=== PATIENT | male | born 1955 | race Two or more races ===

== ENCOUNTER → 2016-03-26 | Outpatient (CLI) | payer OTHER ==
[2016-03-26 08:29] LABS: HEMATOCRIT 32.8 % (42.0-52.0); HEMOGLOBIN 10.7 g/dL (14.0-18.0); MEAN CORPUSCULAR HEMOGLOBIN 29.9 PG (27-31); MEAN CORPUSCULAR HGB CONC 32.6 g/dL (33-37); MEAN PLATELET VOLUME 9.3 FL (7.4-12.2); RDW COEFFICIENT OF VARIATION 16.6 % (11.5-14.5); RED BLOOD COUNT 3.58 10^6/uL (4.70-6.10); WHITE BLOOD COUNT 5.73 10^3/uL (4.8-10.8)
== END ==
LOC: LAB 08:00
PROVIDERS: ATTEND Family Medicine
DX: D64.9 Anemia, unspecified (principal); K92.2 Gastrointestinal hemorrhage, unspecified
CPT/HCPCS: 36415; 85027

== ENCOUNTER 2016-04-20 10:48 | Emergency (ER) | payer OTHER ==
[2016-04-20 11:05] VITALS: RESP 20; TEMP 97.9
[2016-04-20] MEDS ORDERED: NORMAL SALINE 10 ML SYRINGE FLUSH IVP PRN (11:10)
--- NOTE | 2016-04-20 11:22 | PDOC ---
Lower Extremity Problem HPI - General Chief Complaint: Lower Extremity Problem/Injury Stated Complaint: right leg swelling Date Seen by Provider: 04/20/16 Time Seen by Provider: 11:10 Source: POSITIVE: Patient Exam Limitations: POSITIVE: No limitations, Other (Patient does speak Bulgarian however primarily speaks Cymro) Nurse's Notes Reviewed & Considered: Yes - History of Present Illness Initial Comments: The patient is a 60-year-old male who presents to the emergency department with continued and worsening right leg pain and swelling. The patient does have a history of significant varicosities to the right lower extremity. He states that normally he has swelling and varicosities that can sometimes cause pain however for the past couple of weeks he has an area just distal to his knee will which has been significantly more swollen, red and painful. He was seen at the outpatient clinic a week ago and diagnosed with superficial thrombophlebitis and possible cellulitis and started on Keflex. He states that initially the Keflex seem to be helping some however over the past 24 hours he has increased redness which now extends to the zhao. He has had some mild increase in swelling to the right lower extremity in general. He denies chest pain or shortness of breath, fevers or chills, history of diabetes or any other associated complaints. He does not have any recent injury. - Patient Home Medications Home Medications: Home Medications Hydrochlorothiazide 1 tab ORAL QD #90 tab 02/19/16 Lisinopril 1 tab PO BID #180 tab 02/19/16 Pravastatin Sodium [Pravachol] 1 tab ORAL QD #90 tab 02/19/16 Pantoprazole Sodium [Protonix] 40 mg PO BID #60 tab 03/19/16 Cephalexin [Keflex] 500 mg PO Q6H #40 cap 04/13/16 Cephalexin [Keflex] 500 mg PO TID #15 capsule 04/20/16 - Patient Allergies Allergies/Adverse Reactions: Allergies Allergy/AdvReac Type Severity Reaction Status Date / Time NSAIDS (Non-Steroidal AdvReac Severe NOT Verified 04/20/16 10:58 Anti-Inflamma APPLICABLE Past Medical History - heen HEENT History: Denies History Cardiovascular History: Hypertension, Hyperlipidemia Respiratory History: Denies History Gastrointestinal History: GERD, Peptic Ulcer Disease Genitourinary History: Denies History Endocrine History: Denies History Musculoskeletal History: Denies History Neurological History: Denies History Blood Disorders: Denies History Psychiatric History: Denies History History of Sexually Transmitted Diseases: No Cancer History: Denies History In Past Year Been Physically Harmed or Verbally Threatened: No History of MDRO: No History of Other Communicable Diseases: No Tobacco Use: Never Smoker Alcohol Use: Occasionally Substance Use Type: None Previous Surgical History: No Significant Family History: No pertinent family hx Past Medical History Reviewed: Reviewed - No Changes ROS - Limitations ROS Limitations: No Limitations Constitution: DENIES: Chills, Fever Cardiovascular: DENIES: Chest Pain Respiratory: DENIES: Shortness Of Breath Lower Ext Problem Exam - General Appearance General Appearance: POSITIVE: Alert, Cooperative, No Acute Distress - Extremities Lower Extremity: POSITIVE: Other (Examination the right lower extremity does reveal significant varicosities especially to the medial aspect of the right lower extremity, he does have venous stasis changes over the lower zhao, there is an area of varicosity just distal to the knee which is erythematous, tender and firm, there is some mild erythema extending medially to the right zhao, he does not have any tenderness to the posterior calf or popliteal region,) Vascular: POSITIVE: No Vascular Compromise - Neuro / Psych Neuro/Psych: POSITIVE: Sensation Normal, Motor Normal - HEENT HEENT: POSITIVE: Head Inspection Nml - Respiratory / CVS Respiratory / CVS: POSITIVE: No Respiratory Distress, Breath Sounds Normal, Regular Rate/Rhythm, Heart Sounds Normal Lower Ext Problem Progress - Results Reviewed by me Xrays/CTs/US Reviewed by me: Yes Discussed with Radiologist: Yes Radiology Findings: Ultrasound of the right lower extremity reveals no evidence of DVT, he does have marked varicosities with evidence of superficial thrombophlebitis in one of the varicosities associated with his pain. Lab Results Reviewed: Yes - Patient's Progress MDM / ED Course: Ultrasound results were discussed with the patient and his family. Lab work was also discussed. At this point the primary issue is superficial thrombophlebitis in one of the varicosities on the side of his right leg. There could be some component of cellulitis although I think this is primarily thrombophlebitis. He was advised to continue Keflex as prescribed as a precaution and this was extended for 5 days. In addition he was advised to take enteric-coated aspirin 325 mg short-term for the next week or 2. He does have a history of GI bleeding secondary to NSAIDs and was advised to discontinue this medication if he develops any stomach upset or abdominal pain or evidence of any bleeding. In addition he was advised to continue warm compresses or heating pad to the right leg. He is advised to use compression stockings. He states he has had trouble finding any that foot. He may require referral by his primary care provider for prescription compression stockings. He was advised to elevate his right leg. The patient does have extensive varicosity in the right lower extremity and may benefit from surgical referral as well. He was given the number for the vascular surgery group in [place]. Otherwise he will follow-up with his primary care provider next week for recheck in 2-3 days. - Consult Counseled: POSITIVE: Patient, Family, RE: Lab Results, RE: Radiology Results, RE : DX, RE: Need for F/U Patient Care Time - Estimated PCT Patient Care Time (In Minutes): 40 Vital Signs - Recent Vital Signs Vital Signs: Vital Signs (Last 8 hours) Temp Pulse Resp BP Pulse Ox 04/20/16 11:00 97.9 F 85 20 131/87 92 - VS Reviewed Vital Signs Reviewed: Yes Discharge Clinical Impression: Superficial thrombophlebitis, Varicose vein of leg Condition: Stable Prescriptions / Orders: Cephalexin [Keflex] 500 mg PO TID #15 capsule Patient Instructions Given at Discharge: Varicose Veins (ED), Superficial Thrombophlebitis (ED) Additional Instructions: The ultrasound done today does show clot located in the varicose vein of the right leg. There was not any evidence of clot in the deeper veins. This type of blood clot is not a danger for breaking off and going to the lung and is therefore usually treated with regular aspirin daily as a blood thinner. Also keep the right leg elevated to reduce swelling. Heating pad or warm compresses to help increase circulation. It is possible there could be some component of infection although the redness is most likely related to the clot itself and the inflammation associated with it. Continue the Keflex as prescribed and this was extended for an additional 5 days. Recommend long compression stocking. You may need referral from your primary care provider to be fitted for 1 that will work. Continue Tylenol as needed for pain. Consider follow-up with vascular surgery in [place] to see if there may be a surgical option because of the severity of the varicose vein on your leg. Their phone number is [phone], [facility]. Recommend follow-up with primary care in 2-3 days for recheck. Follow Up With: SUDHAKAR DEVINE FNP [Primary Care Provider] -
[2016-04-20 11:24] LABS: BASOPHILS # (AUTO) 0.05 10*3/UL; BASOPHILS % (AUTO) 0.8 % (0-1); EOSINOPHILS % (AUTO) 1.8 % (0-8); HEMATOCRIT 41.9 % (42.0-52.0); HEMOGLOBIN 13.8 g/dL (14.0-18.0); IMM GRAN % (AUTO) 0.2 % (0-5); IMM GRAN# (AUTO) 0.01 10*3/UL; LYMPHOCYTES # (AUTO) 1.56 10*3/uL; MEAN CORPUSCULAR HEMOGLOBIN 29.5 PG (27-31); MEAN CORPUSCULAR HGB CONC 32.9 g/dL (33-37); MEAN PLATELET VOLUME 9.2 FL (7.4-12.2); MONOCYTES # (AUTO) 0.54 10*3/UL (0.3-0.8); MONOCYTES % (AUTO) 8.6 % (5-15); NEUTROPHILS # (AUTO) 3.98 10*3/UL; NEUTROPHILS % (AUTO) 63.6 % (50-80); RED BLOOD COUNT 4.68 10^6/uL (4.70-6.10); WHITE BLOOD COUNT 6.25 10^3/uL (4.8-10.8)
[2016-04-20 11:28] LABS: PLATELET MORPHOLOGY COMMENT NORMAL MORPHOLOGY (NORM)
[2016-04-20 11:37] LABS: ASPARTATE AMINO TRANSFERASE 26 IU/L (21-57); BILIRUBIN,TOTAL 0.6 mg/dL (0.3-1.2); BLOOD UREA NITROGEN 13 mg/dL (7-22); BUN/CREATININE RATIO 11.81 (6-20); C-REACTIVE PROTEIN 2.8 mg/dL (0.0-0.9); CALCIUM 9.4 mg/dL (8.7-10.7); CHLORIDE 100 meq/L (98-112); CREATININE 1.1 mg/dL (0.70-1.50); EST GLOMERULAR FILTRATION > 60 (>60 ml/min/1.73m(2)); GLUCOSE 101 mg/dL (78-110); POTASSIUM 4.1 meq/L (3.8-5.2); SODIUM 141 meq/L (135-145); TOTAL PROTEIN 8.7 g/dL (6.1-8.0)
[2016-04-20 11:47] LABS: PROTHROMBIN TIME 10.1 secs (9.7-11.4)
--- NOTE | 2016-04-20 12:39 | DI ---
HISTORY: Right lower extremity pain and swelling. TECHNIQUE: Duplex Doppler examination of the deep veins of the lower extremity was performed with co mpression. FINDINGS: Spectral Doppler demonstrates normal respiratory variation. There is an appropriate respo nse to compression maneuvers. There is no evidence of intraluminal thrombus. There appear to be multiple superficial venous varicosities within the medial soft tissues at the lev el of the knee. The technologist also reports possible superficial thrombophlebitis. IMPRESSION: 1. No deep venous thrombosis within the right lower extremity. 2. Apparent multiple superficial venous varicosities in the medial soft tissues at the level of the k nee with reports by the technologist of possible superficial thrombophlebitis.
== END 2016-04-20 13:07 | disposition home or self-care (01) ==
LOC: ER 10:48
DX: I82.811 Embolism and thrombosis of superficial veins of right lower extremity (principal); I83.891 Varicose veins of right lower extremity with other complications; R22.41 Localized swelling, mass and lump, right lower limb
CPT/HCPCS: 80053; 85025; 85610; 85730; 86140; 93971; 99283